=== PATIENT | female | born 1970 | race American Indian/Alaskan Native ===

== ENCOUNTER 2017-09-21 15:19 | Emergency (ER) | payer OTHER ==
[2017-09-21 16:10] LABS: Basophils % (Auto) 0.5 % (0.0-1.8); Eosinophils # (Auto) 0.1 K/mm3 (0.0-0.4); Hemoglobin 12.7 gm/dl (10.1-14.3); Lymphocytes # (Auto) 2.2 K/mm3 (1.2-5.4); Lymphocytes % (Auto) 21.3 % (13.4-35.0); Mean Corpuscular HGB Conc 32 % (30-34); Mean Corpuscular Volume 77 fl (79-97); Monocytes # (Auto) 0.6 K/mm3 (0.0-0.8); Monocytes % (Auto) 6.3 % (0.0-7.3); Platelet Count 337 K/mm3 (140-440); Red Cell Distribution Width 15.2 % (13.2-15.2)
[2017-09-21 16:18] LABS: Mean Corpuscular Hemoglobin 24 pg (28-32)
[2017-09-21 16:26] LABS: Alanine Aminotransferase 8 units/L (7-56); Albumin 3.5 g/dL (3.9-5); BUN/Creatinine Ratio 13; Blood Urea Nitrogen 8 mg/dL (7-17); Hemolysis Index 37; Lipase 33 units/L (13-60)
[2017-09-21] MEDS ORDERED: MORPHINE IM ONE (18:06)
[2017-09-21] MEDS ORDERED: ZOFRAN IM ONE (18:06)
--- NOTE | 2017-09-21 18:10 | Emergency Department Report ---
ED Back Pain/Injury HPI - General Chief Complaint: Back Pain/Injury Stated Complaint: LOW BACK PAIN Time Seen by Provider: 09/21/17 18:01 Source: patient Limitations: No Limitations - History of Present Illness Initial Comments: Patient is 47 years old female history of hypertension. Patient presented to the ER with low back pain that radiated to her right leg started 3 days ago. Patient denied any history of trauma or injury. Patient had similar symptoms before. Patient denied any urinary symptoms, fever or nausea or vomiting. No lower extremity weakness, numbness or tingling sensation. No bowel or bladder incontinence. MD Complaint: back pain -: days(s) Similar Symptoms Previously: Yes Radiation: right leg Severity scale (0 -10): 7 Quality: sharp Consistency: intermittent Improves With: immobilization Worsens With: movement Context: unknown Associated Symptoms: denies other symptoms - Related Data Allergies Allergy/AdvReac Type Severity Reaction Status Date / Time No Known Allergies Allergy Unverified 09/21/17 15:23 ED Review of Systems ROS: Stated complaint: LOW BACK PAIN Other details as noted in HPI Comment: All other systems reviewed and negative Constitutional: denies: chills, fever Respiratory: denies: cough, orthopnea, shortness of breath, SOB with exertion Cardiovascular: denies: chest pain, palpitations Gastrointestinal: denies: abdominal pain, nausea, vomiting, diarrhea, constipation, hematemesis Musculoskeletal: back pain. denies: joint swelling, arthralgia, myalgia Neurological: denies: headache, weakness, numbness ED Past Medical Hx - Past Medical History Previous Medical History?: Yes Hx Hypertension: Yes Additional medical history: Gallstones. Obesity - Surgical History Past Surgical History?: Yes Hx Cholecystectomy: Yes - Social History Smoking Status: Never Smoker Substance Use Type: Prescribed ED Physical Exam - General Limitations: No Limitations General appearance: alert, in no apparent distress - Head Head exam: Present: atraumatic, normocephalic, normal inspection - Eye Eye exam: Present: normal appearance, PERRL - ENT ENT exam: Present: normal exam, normal orophraynx, mucous membranes moist - Neck Neck exam: Present: normal inspection, full ROM. Absent: tenderness, meningismus - Respiratory Respiratory exam: Present: normal lung sounds bilaterally. Absent: respiratory distress, wheezes, rales, rhonchi, chest wall tenderness, accessory muscle use, decreased breath sounds, prolonged expiratory - Cardiovascular Cardiovascular Exam: Present: regular rate, normal rhythm, normal heart sounds - GI/Abdominal GI/Abdominal exam: Present: soft, normal bowel sounds. Absent: distended, tenderness, guarding, rebound, rigid, organomegaly, mass, bruit, pulsatile mass , hernia - Extremities Exam Extremities exam: Present: normal inspection, full ROM, normal capillary refill - Back Exam Back exam: Present: normal inspection, full ROM, muscle spasm. Absent: tenderness, CVA tenderness (R), CVA tenderness (L), paraspinal tenderness, vertebral tenderness, rash noted - Neurological Exam Neurological exam: Present: alert, oriented X3, CN II-XII intact, normal gait - Skin Skin exam: Present: warm, intact, normal color ED Course Vital Signs 09/21/17 09/21/17 09/21/17 15:23 18:28 19:46 Temperature 97.6 F 98.3 F Pulse Rate 83 74 Respiratory 20 18 20 Rate Blood Pressure 197/124 Blood Pressure 160/91 [Right] O2 Sat by Pulse 98 99 Oximetry 09/21/17 19:47 Temperature Pulse Rate Respiratory 20 Rate Blood Pressure Blood Pressure [Right] O2 Sat by Pulse Oximetry - Reevaluation(s) Reevaluation #1: 09/21/17 20:10 Patient stated that she is feeling much better. I advised patient to follow-up with her primary care physician for further management. ED Medical Decision Making - Lab Data Result diagrams: 09/21/17 15:54 09/21/17 15:54 - Radiology Data Radiology results: report reviewed Referring Physician: ROCKY GALLARDO Patient Name: BAYRON HICKS Date of : 1970 Sex: Female Report Date: 2017-09-21 Report Status: Finalized Findings [facility] [address] [place] [address] XRay Report Signed Patient: BAYRON HICKS MR#: [id number] : 1970 Acct:[id number] Age/Sex: 47 / F ADM Date: 09/21/17 Loc: ED Attending Dr: Ordering Physician: ROCKY GALLARDO Date of Service: 09/21/17 Procedure(s): XR spine lumbosacral 2-3V Accession Number(s): [id number] cc: ROCKY Nava Time In Minutes: FINAL REPORT EXAM: XR SPINE LUMBOSACRAL 2-3V HISTORY: BACK PAIN TECHNIQUE: AP, lateral and coned-down views of the lumbar spine PRIORS: None. FINDINGS: The vertebral body heights and disc spaces are well maintained. The alignment is normal. No evidence for spondylolysis or spondylolisthesis is seen. Pedicles are intact bilaterally at all levels. The paraspinal soft tissues are unremarkable. IMPRESSION: Normal lumbar spine. Transcribed By: [facility] Dictated By: YURY CARUSO MD Electronically Authenticated By: YURY CARUSO MD Signed Date/Time: 09/21/171942 DD/ 42 TD/TT: 09/21/171942 Critical care attestation.: If time is entered above; I have spent that time in minutes in the direct care of this critically ill patient, excluding procedure time. ED Disposition Clinical Impression: Back pain Disposition: DC-01 TO HOME OR SELFCARE Is pt being admited?: No Condition: Stable Instructions: Acute Low Back Pain (ED) Referrals: PRIMARY CARE, [Primary Care Provider] - 3-5 Days
[2017-09-21 19:47] VITALS: BP 160/91
--- NOTE | 2017-09-21 19:49 | XRay Report ---
FINAL REPORT EXAM: XR SPINE LUMBOSACRAL 2-3V HISTORY: BACK PAIN TECHNIQUE: AP, lateral and coned-down views of the lumbar spine PRIORS: None. FINDINGS: The vertebral body heights and disc spaces are well maintained. The alignment is normal. No evidence for spondylolysis or spondylolisthesis is seen. Pedicles are intact bilaterally at all levels. The paraspinal soft tissues are unremarkable. IMPRESSION: Normal lumbar spine.
== END 2017-09-21 20:27 | disposition home or self-care (01) ==
LOC: ED 15:19
DX: M54.5 Low back pain (principal); I10 Essential (primary) hypertension; Z90.49 Acquired absence of other specified parts of digestive tract
CPT/HCPCS: 36415; 72100; 80053; 83690; 85025; 96372; 99283; J2270

== ENCOUNTER 2018-08-03 17:13 | Emergency (ER) | payer OTHER ==
[2018-08-03 18:25] VITALS: BP 190/116
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
== END 2018-08-03 19:28 | disposition home or self-care (01) ==
LOC: ED 17:13
DX: M54.5 Low back pain (principal); M25.562 Pain in left knee; M62.838 Other muscle spasm; I10 Essential (primary) hypertension
CPT/HCPCS: 99282

== ENCOUNTER 2019-06-02 15:42 | Emergency (ER) | payer OTHER ==
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
[2019-06-02] MEDS ORDERED: cloNIDine 0.1 MG TAB PO ONE (16:55)
[2019-06-02] MEDS ORDERED: hydrALAZINE 20 MG/1 ML INJ IV ONE (20:31)
[2019-06-02] MEDS ORDERED: hydrALAZINE 20 MG/1 ML INJ ONE (20:34)
[2019-06-02 21:19] VITALS: BP 177/98
== END 2019-06-02 21:24 | disposition home or self-care (01) ==
LOC: ED 15:42
DX: S50.12XA Contusion of left forearm, initial encounter (principal); S39.012A Strain of muscle, fascia and tendon of lower back, initial encounter; I10 Essential (primary) hypertension; Z90.49 Acquired absence of other specified parts of digestive tract; V89.2XXA Person injured in unspecified motor-vehicle accident, traffic, initial encounter; Y93.89 Activity, other specified; Y92.410 Unspecified street and highway as the place of occurrence of the external cause; Y99.8 Other external cause status
CPT/HCPCS: 96374; 99282; J0360